=== PATIENT | female | born 1980 | race Caucasian/White ===

== ENCOUNTER 2017-03-20 15:16 | Emergency (ER) | payer SELFPAY ==
[~2017-03-20] VITALS: Ht 162.6 cm; Wt 101.3 kg
[2017-03-20 15:34] VITALS: Ht 162.6 cm; Wt 101.3 kg
[2017-03-20] MEDS ORDERED: ONDANSETRON (ODT) 4 MG TAB ODT STA (17:12)
--- NOTE | 2017-03-20 17:15 | ERD ---
ER Documentation Chief Complaint Chief Complaint N/V and dizziness x this AM HPI 36-year-old female presents emergency department for nausea and vomiting, dizziness this started at around 10 AM this morning. Also added that she feels like her surrounding is moving when she woke up this morning. Stated that she had a nonbloody and non-bilious emesis 4 times since 10 AM. LMP: 2 days ago. A0. Denies headache, head trauma, throat pain, difficulty swallowing, shoulder pain , chest pain, difficulty breathing when lying flat, back pain, constipation, diarrhea, changes in diet in the past 3 days, urinary symptoms, or possibility of being , loss of bowel and bladder control, changes in bowel and bladder habits, trauma, injury, falls, fever, chills. ROS All systems reviewed and are negative except as per history of present illness. Medications Home Meds Active Scripts Cephalexin* (Keflex*) 500 Mg Capsule, 500 MG PO QID for 5 Days, CAP Prov:PASILABAN,BRITTANYAR F 03/20/17 Diphenhydramine Hcl* (Benadryl*) 25 Mg Cap, 25 MG PO Q6 Y for ITCHING/RASH, #30 TAB Prov:PASILABAN,BRITTANYAR F 03/20/17 Metoclopramide* (Reglan*) 10 Mg Tablet, 10 MG PO Q6 Y for NAUSEA AND/OR VOMITING , #20 TAB Prov:PASILABAN,KLAR F 03/20/17 Meclizine Hcl* (Antivert*) 12.5 Mg Tab, 12.5 MG PO Q6H Y for DIZZINESS, #20 TAB Prov:PASILABAN,BRITTANYAR F 03/20/17 Allergies Allergies: Coded Allergies: No Known Allergy (Unverified , 03/20/17) PMhx/Soc Medical and Surgical Hx: pt denies Medical Hx, pt denies Surgical Hx Hx Alcohol Use: No Hx Substance Use: No Hx Tobacco Use: No Smoking Status: Never smoker Physical Exam Vitals Vital Signs Date Time Temp Pulse Resp B/P Pulse Ox O2 Delivery O2 Flow Rate FiO2 03/20/17 19:32 98.2 67 14 112/54 97 Room Air 64 115/64 63 126/77 03/20/17 15:34 97.4 81 20 165/69 99 Physical Exam Const: Not respiratory distress. Head: Atraumatic. Eyes: Normal Conjunctiva. Extraocular movement of the eyes is within normal limits. There is no pain in eye movement. There is no nystagmus. ENT: Normal External Ears, Nose and Mouth. Neck: Full range of motion..~ No meningismus. Resp: Clear to auscultation bilaterally Cardio: Regular rate and rhythm, no murmurs Abd: Soft, non tender, non distended. Normal bowel sounds. Able to jump 5 times without developing abdominal pain.. Skin: No petechiae or rashes Back: No midline or flank tenderness Ext: No cyanosis, or edema Neur: Awake and alert. No unilateral deficits. Psych: Normal Mood and Affect Result Diagram: 03/20/17 1730 03/20/17 173 Results 24 hrs Laboratory Tests Test 03/20/17 17:30 03/20/17 17:31 03/20/17 18:00 White Blood Count 11.510^3/ul Red Blood Count 4.9010^6/ul Hemoglobin 15.4g/dl Hematocrit 46.0% Mean Corpuscular Volume 93.9fl Mean Corpuscular Hemoglobin 31.4pg Mean Corpuscular Hemoglobin Concent 33.5g/dl Red Cell Distribution Width 12.0% Platelet Count 49836^3/UL Mean Platelet Volume 10.2fl Neutrophils % 81.2% Lymphocytes % 13.4% Monocytes % 4.5% Eosinophils % 0.3% Basophils % 0.3% Nucleated Red Blood Cells % 0.0/100WBC Neutrophils # 9.310^3/ul Lymphocytes # 1.510^3/ul Monocytes # 0.510^3/ul Eosinophils # 0.010^3/ul Basophils # 0.010^3/ul Nucleated Red Blood Cells # 0.010^3/ul Sodium Level 142mmol/L Potassium Level 4.2mmol/L Chloride Level 108mmol/L Carbon Dioxide Level 20mmol/L Anion Gap 18 Blood Urea Nitrogen 13mg/dl Creatinine 0.74mg/dl Glucose Level 133mg/dl Calcium Level 9.7mg/dl Total Bilirubin 0.6mg/dl Direct Bilirubin 0.00mg/dl Indirect Bilirubin 0.6mg/dl Aspartate Amino Transf (AST/SGOT) 27IU/L Alanine Aminotransferase (ALT/SGPT) 36IU/L Alkaline Phosphatase 85IU/L Total Protein 8.4g/dl Albumin 4.2g/dl Globulin 4.20g/dl Albumin/Globulin Ratio 1.00 Amylase Level 68U/L Lipase 64U/L Urine Color YELLOW Urine Clarity CLEAR Urine pH 5.0 Urine Specific [place] 1.025 Urine Ketones NEGATIVEmg/dL Urine Nitrite NEGATIVEmg/dL Urine Bilirubin NEGATIVEmg/dL Urine Urobilinogen NEGATIVEmg/dL Urine Leukocyte Esterase TRACELeu/ul Urine Microscopic RBC 5/HPF Urine Microscopic WBC 15/HPF Urine Squamous Epithelial Cells FEW/HPF Urine Mucus FEW/HPF Urine Hemoglobin 2+mg/dL Urine Glucose NEGATIVEmg/dL Urine Total Protein 1+mg/dl Current Medications Medications (Trade) Dose Ordered Sig/Waylon Route PRN Reason Start Time Stop Time Status Last Admin Dose Admin Meclizine HCl (Antivert) 25 mg ONCE ONCE PO 03/20/17 17:30 03/20/17 17:31 DC 03/20/17 17:20 Ondansetron HCl (Zofran Odt) 4 mg ONCE STAT ODT 03/20/17 17:12 03/20/17 17:13 DC 03/20/17 17:21 Metoclopramide HCl (Reglan) 10 mg ONCE ONCE IV 03/20/17 18:30 03/20/17 18:31 DC 03/20/17 18:15 Diphenhydramine HCl (Benadryl) 50 mg ONCE ONCE IV 03/20/17 18:30 03/20/17 18:31 DC 03/20/17 18:15 Procedures/MDM Differential diagnosis includes but not limited to benign paroxysmal positional vertigo versus stroke versus cardiac process versus urinary tract infection versus Blood works: Reviewed. POC urine : Negative. Urinalysis: UTI. Not relieved of Zofran ODT, Antivert. Treatment: IV insertion. Reglan IV. Benadryl IV. With relief of symptoms. Reevaluation: Denies pain. No abdominal tenderness. Romberg test negative. No neurological deficits. Stated that she feels much better at this time. Low suspicion for stroke or cardiac process this patient denies any family history of stroke or heart attack before the age of 50 and patient states that she feels like her surrounding is moving like on a [id number]. She denies chest pain, arm pain, abdominal pain, back pain, unilateral weakness. Final diagnosis: Benign paroxysmal positional vertigo Prescription: Antivert. Benadryl. Reglan. Keflex. Follow-up with PCP in the next 24-48 hours. Come back here in the emergency department for any new symptoms or any worsening of symptoms. All questions and concerns are answered. Patient verbalized understanding and agreed with the plan of care. Hemodynamically stable on discharge. Departure Diagnosis: Primary Impression: Vertigo Additional Impression: UTI (urinary tract infection) Condition: Stable Additional Instructions: Follow-up with PCP in the next 24-48 hours. Come back here in the emergency department for any new symptoms or any worsening of symptoms. All questions and concerns are answered. Patient verbalized understanding and agreed with the plan of care. RAMON CHAN Mar 20, 2017 17:15
[2017-03-20] MEDS ORDERED: MECLIZINE 12.5 MG TAB PO ONE (17:30)
[2017-03-20 17:39] LABS: BASOPHILS % 0.3 % (0.0-2.0); EOSINOPHILS % 0.3 % (0.0-7.0); HEMOGLOBIN 15.4 g/dl (12.0-16.0); LYMPHOCYTES # 1.5 10^3/ul (0.8-2.9); LYMPHOCYTES % 13.4 % (15.0-51.0); MEAN CORPUSCULAR HEMOGLOBIN 31.4 pg (29.0-33.0); MEAN CORPUSCULAR HGB CONC 33.5 g/dl (32.0-37.0); MEAN CORPUSCULAR VOLUME 93.9 fl (82.0-101.0); MEAN PLATELET VOLUME 10.2 fl (7.4-10.4); MONOCYTE # 0.5 10^3/ul (0.3-0.9); MONOCYTES % 4.5 % (0.0-11.0); NEUTROPHIL # 9.3 10^3/ul (1.6-7.5); NEUTROPHILS % 81.2 % (39.0-77.0); PLATELET COUNT 300 10^3/UL (140-415); WHITE BLOOD COUNT 11.5 10^3/ul (4.8-10.8)
[2017-03-20 17:57] LABS: ALBUMIN 4.2 g/dl (3.3-4.9); BILIRUBIN,INDIRECT 0.6 mg/dl (0-1.1); BILIRUBIN,TOTAL 0.6 mg/dl (0.2-1.3); CALCIUM 9.7 mg/dl (8.4-10.2); CREATININE 0.74 mg/dl (0.44-1.00); POTASSIUM 4.2 mmol/L (3.5-5.1); TOTAL PROTEIN 8.4 g/dl (6.1-8.1)
[2017-03-20] MEDS ORDERED: METOCLOPRAMIDE 10 MG INJ IV ONE (18:30)
[2017-03-20] MEDS ORDERED: DIPHENHYDRAMINE 50 MG INJ IV ONE (18:30)
[2017-03-20 18:40] LABS: ADD UMIC YES; UR ASCORBIC ACID NEGATIVE (NEGATIVE); UR BILIRUBIN (Dip) NEGATIVE (NEGATIVE); UR BLOOD (Dip) 2+ mg/dL (NEGATIVE); UR CLARITY CLEAR (CLEAR); UR COLOR YELLOW (YELLOW); UR GLUCOSE (Dip) NEGATIVE (NEGATIVE); UR KETONES (Dip) NEGATIVE (NEGATIVE); UR LEUKOCYTE ESTERASE (Dip) TRACE Leu/ul (NEGATIVE); UR MUCUS FEW /HPF (NONE SEEN); UR NITRITE (Dip) NEGATIVE (NEGATIVE); UR RBC 5 /HPF (0-5); UR SPECIFIC GRAVITY (Dip) 1.025 (1.003-1.030); UR SQUAMOUS EPITHELIAL CELL FEW /HPF (FEW); UR TOTAL PROTEIN (Dip) 1+ mg/dl (NEGATIVE); UR UROBILINOGEN (Dip) NEGATIVE (NEGATIVE)
[2017-03-20 19:32] VITALS: BP 126/77; PULSE 63; RESP 14; TEMP 98.2
[2017-03-20] MEDS ORDERED: MECL12.574 PO (20:01)
[2017-03-20] MEDS ORDERED: METO10TA92 PO (20:01)
[2017-03-20] MEDS ORDERED: BEN25 PO (20:01)
[2017-03-20] MEDS ORDERED: CEPH-443 PO (20:03)
== END 2017-03-20 20:13 | disposition home or self-care (01) ==
LOC: FTE 15:16
DX: N39.0 Urinary tract infection, site not specified (principal); R10.2 Pelvic and perineal pain
CPT/HCPCS: 80053; 81001; 82150; 83690; 85025; 96374; 96375; 99284; J1200; J2765